=== PATIENT | male | born 1990 | race Two or more races ===

== ENCOUNTER 2024-10-03 02:21 | Emergency (ER) | payer OTHER ==
[~2024-10-03] VITALS: Ht 175.3 cm; Wt 115.2 kg
[2024-10-03 03:54] VITALS: BP 137/95; PULSE 86; RESP 19; TEMP 98.3; O2SAT 95
[2024-10-03 04:43] LABS: COVID19 ANTIGEN SOFIA FIA NEGATIVE (NEGATIVE); Rapid Influenza A Negative (Negative); Rapid Influenza B Negative (Negative)
--- NOTE | 2024-10-03 04:52 | ED.PDOC ---
GI ASSESSMENT Chief Complaint: Abdominal Pain Time Seen by MD: 02:39 Reviewed Notes: Nurses Notes, Medications, Allergies Information Source: Patient Mode of Arrival: Ambulatory X-Ray, Labs, Meds, VS Vital Signs Date Time Temp Pulse Resp B/P (MAP) Pulse Ox O2 Delivery O2 Flow Rate FiO2 10/03/24 03:54 98.3 86 19 137/95 (109) 95 98.3 10/03/24 03:54 86 19 95 Room Air 10/03/24 03:10 98.3 88 18 150/103 (119) 95 Lab Test 10/03/24 03:15 Range/Units Influenza Type A Antigen Negative Negative Influenza Type B Antigen Negative Negative SARS-CoV-2 Antigen (Rapid) Negative NEGATIVE Time of 1ST Reevaluation: 04:51 Reevaluation 1ST: Improved Patient Education/Counseling: Diagnosis, Treatment, Prognosis, Need For Follow Up Family Education/Counseling: Prognosis, Need For Follow Up Departure 1 Departure Time of Disposition: 04:51 Impression: Primary Impression: Gastroenteritis Disposition: 01 HOME / SELF CARE / HOMELESS Condition: Stable Discharged With: Spouse Critical Care Note Critical Care Time?: No Stability Stability form required: JUJU Quinones Oct 03, 2024 04:52
== END 2024-10-03 05:14 | disposition home or self-care (01) ==
LOC: ER 02:21
DX: K52.9 Noninfective gastroenteritis and colitis, unspecified (principal); Z20.822 Contact with and (suspected) exposure to COVID-19
CPT/HCPCS: 36415; 87426; 87804

== ENCOUNTER 2025-06-17 23:41 | Emergency (ER) | payer MEDICAID, OTHER ==
[~2025-06-17] VITALS: Ht 175.3 cm; Wt 103.0 kg
[2025-06-17 23:41] VITALS: O2SAT 94
--- NOTE | 2025-06-18 00:05 | ED.PDOC ---
Eye-HPI HPI Comments PATIENT C/O RIGHT UPPER TOOTH PAIN FOR 4 DAYS/ CAVITY FOR MONTHS. HAS ATTEMPTED TO MAKE DENTIST APPOINTMENT, BUT THEY ARE MONTHS OUT. DIFFICULTY BREATHING, SWALLOWING, SHORTNESS OF BREATH, THROAT SWELLING, FEVER, CHILLS, NAUSEA OR VOMITING. Chief Complaint: Tooth Pain Time Seen by MD: 23:48 Reviewed Notes: Nurses Notes, Medications, Allergies Allergies: Coded Allergies: NO KNOWN ALLERGIES (Unverified , 06/17/25) Home Meds Active Scripts Ibuprofen (Ibuprofen) 800 Mg Tab, 800 MG PO Q8HP PRN for 6 Days, #18 TAB Prov:JUJU CASTILLO [facility] 06/18/25 Clindamycin Hcl (Clindamycin Hcl) 300 Mg Cap, 300 MG PO QID for 7 Days, #28 CAP Prov:JUJU CASTILLO [facility] 06/18/25 Information Source: Patient Mode of Arrival: Ambulatory Past Medical History PAST MEDICAL HISTORY: Denies Surgical History: Denies all surgeries Family History Family History: Reviewed,noncontributory to illness Social History Smoker: Non-Smoker Alcohol: Denies ETOH Use Drugs: Denies Drug Use All Other Systems: Reviewed and Negative (SEE HPI) Physical Exam General Appearance: No Apparent Distress, Normal HEENT: Pharynx Normal, TMs Normal, Other (RIGHT BACK UPPER MOLAR MODERATE DECAY MILD RIGHT SIDE CHEEK SWELLING) Neck: Full Range of Motion, Non-Tender, Normal, Normal Inspection Respiratory: Chest Non-Tender, Lungs Clear, No Accessory Muscle Use, No Respiratory Distress, Normal Breath Sounds Cardiovascular: No Edema, No JVD, No Murmur, No Gallop, Normal Peripheral Pulses, Regular Rate/Rhythm Breast Exam: Deferred Gastrointestinal: No Organomegaly, Non Tender, No Pulsatile Mass, Normal Bowel Sounds, Soft Genitalia: Deferred Pelvic: Deferred Rectal: Deferred Extremities: No calf tenderness, Normal capillary refill, Normal inspection, Normal range of motion, Non-tender, No pedal edema Musculoskeletal : Apperance: Normal Neurologic: Alert, dolly pusher II-XII nml as Tested, No Motor Deficits, Normal Affect, Normal Mood, No Sensory Deficits Cerebellar Function: Normal Reflexes: Normal Skin: Dry, Normal Color, Warm Lymphatic: No Adenopathy Was a procedure done? Was a procedure done?: No EENT DIFF Eye: N/A Ear: Otitis Media, Dental, Pharyngitis X-Ray, Labs, Meds, VS Vital Signs Date Time Temp Pulse Resp B/P (MAP) Pulse Ox O2 Delivery O2 Flow Rate FiO2 06/17/25 23:41 97.3 67 20 168/106 94 97.3 X-Ray, Labs, Meds, VS Comment TORADOL 60 MG IM, NORCO 5 MG P.O., AND ROCEPHIN 1 G IM, AND HURRICAINE SPRAY. REPORTS IMPROVEMENT IN PAIN REQUESTING DISCHARGE AT THIS TIME. SCRIPT TRIAL OF CLINDA AND IBUPROFEN ADVISED TAKE MEDICATION PRESCRIBED SIDE EFFECTS DISCUSSED ADVISED TO TAKE WITH A PROBIOTIC FOR YOGURT DAILY. WITH DENTAL FOR RESOLUTION. ER RETURN PRECAUTIONS GIVEN PLEASE WITH DISCHARGE PLAN OF CARE. Time of 1ST Reevaluation: 23:48 Reevaluation 1ST: Unchanged Time of 2ND Reevaluation: 00:18 Reevaluation 2ND: Improved Patient Education/Counseling: Diagnosis, Treatment, Need For Follow Up Family Education/Counseling: Diagnosis, Treatment, Need For Follow Up SEPSIS Sepsis Screen Date sepsis recognized/suspect: Jun 17, 2025 Time Sepsis recognized/suspect: 2340 Recent Procedure: No On Antibiotic Therapy: No Respiratory Rate >20: No Heart Rate >90: No Temp<36 C (96.8 F) or >38.3 C: No SBP <90 or MAP <65 mmHG: No New Acute Mental Status Change: No Is the patient on CPAP, BIPAP,: No Vital Signs Date Time Temp Pulse Resp B/P (MAP) Pulse Ox O2 Delivery O2 Flow Rate FiO2 06/17/25 23:41 97.3 67 20 168/106 94 97.3 Departure 1 Departure Time of Disposition: 00:18 Impression: Primary Impression: Infected dental caries Additional Impression: Abscess, dental Disposition: HOME / SELF CARE / HOMELESS Condition: Stable e-Prescriptions Ibuprofen (Ibuprofen) 800 Mg Tab 800 MG PO Q8HP PRN for 6 Days, #18 TAB Prov: JUJU CASTILLO 06/18/25 Clindamycin Hcl (Clindamycin Hcl) 300 Mg Cap 300 MG PO QID for 7 Days, #28 CAP Prov: JUJU CASTILLO 06/18/25 Discharged With: Significant Other Critical Care Note Critical Care Time?: No Stability Stability form required: No JUJU CASTILLO Jun 18, 2025 00:05
[2025-06-18] MEDS ORDERED: CLIN1CAP70 PO (00:13)
[2025-06-18] MEDS ORDERED: IBUP-1456 PO (00:13)
[2025-06-18 00:17] VITALS: BP 149/102; PULSE 60; RESP 18; TEMP 99
[2025-06-18] MEDS: cefTRIAXone SOD 1,000 MG VL IM ONE (00:23)
[2025-06-18] MEDS: KETOROLAC TROMETH 60MG/2ML VIAL IM ONE (00:29)
[2025-06-18] MEDS: HYDROcodone-ACET 5/325MG TAB PO ONE (00:33)
[2025-06-18] MEDS: BENZOCAINE (DENTAL) 20 % SPRAY 60ML MT ONE (00:33)
== END 2025-06-18 00:36 | disposition home or self-care (01) ==
LOC: ER 23:41
DX: K02.9 Dental caries, unspecified (principal); K04.7 Periapical abscess without sinus; Z79.899 Other long term (current) drug therapy
CPT/HCPCS: 96372; 99284; J0696; J1885

== ENCOUNTER 2025-08-11 00:18 | Emergency (ER) | payer MEDICAID ==
[~2025-08-11] VITALS: Ht 175.3 cm; Wt 119.1 kg
[2025-08-11 00:20] VITALS: PULSE 65; RESP 18; TEMP 98.1; O2SAT 96
[2025-08-11] MEDS: ONDANSETRON ODT 4 MG TAB PO ONE (00:43)
[2025-08-11] MEDS: HYDROcodone-ACET 5/325MG TAB PO ONE (00:43)
[2025-08-11] MEDS ORDERED: CYCL-837 PO (00:47)
[2025-08-11] MEDS ORDERED: ACET500T58 PO (00:47)
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
[2025-08-11 01:05] VITALS: BP 184/127
--- NOTE | 2025-08-11 02:30 | DVH ---
EXAM: CT CERVICAL WITHOUT CONTRAST HISTORY: neck pain COMPARISON: None CTDIvol 26.5 mGy, DLP 727.29 mGy*cm. TECHNIQUE: Multiple axial CT images of the spine were obtained using bone algorithm. Axial and coronal reformatting was done. Bone and soft tissue windows were reviewed. FINDINGS: No evidence of vertebral fracture or compression deformity. Normal alignment. Normal craniocervical junction. Minimal multilevel spondylosis. No acute finding of the imaged intracranial contents, neck soft tissues, or upper chest. IMPRESSION: 1. No acute finding of the cervical spine.
== END 2025-08-11 02:37 | disposition home or self-care (01) ==
LOC: ER 00:18
DX: S16.1XXA Strain of muscle, fascia and tendon at neck level, initial encounter (principal); I10 Essential (primary) hypertension; E11.9 Type 2 diabetes mellitus without complications; V89.2XXA Person injured in unspecified motor-vehicle accident, traffic, initial encounter; Y92.410 Unspecified street and highway as the place of occurrence of the external cause; Y93.89 Activity, other specified; Y99.8 Other external cause status
CPT/HCPCS: 72125; 99284; Q0162

== ENCOUNTER 2025-08-14 23:10 | Emergency (ER) | payer MEDICAID ==
[~2025-08-14] VITALS: Ht 175.3 cm; Wt 117.0 kg
[~2025-08-14 23:10] MED LIST: ACET500T58 PO; CYCL-837 PO
--- NOTE | 2025-08-14 23:24 | ECG ---
[facility] Test Date: 2025-08-14 Test Time: 23:22:07 Pat Name: CHRISTIAN HOLLY Department: [facility] ED Patient ID: [id number] Room: Gender: M Cosmetic Sales Consultant: Devyn : 1990 Requested By: DOREEN FAM Order Number: [id number] Reading MD: Rickey Degroot Measurements Intervals [place] Rate: 60 P: 53 AL: 146 QRS: 47 QRSD: 99 T: -2 QT: 443 QTc: 443 Interpretive Statements Sinus rhythm Nonspecific repol abnormality, inferior leads Electronically Signed On 08-15-2025 14:46:10 PST by Rickey Degroot Please click the below link to view image of tracing.
[2025-08-15] MEDS ORDERED: NITROGLYCERIN 0.4 MG SL TAB SL ONE (02:45)
[2025-08-15] MEDS ORDERED: AML5T PO (02:57)
--- NOTE | 2025-08-15 02:58 | ED.PDOC ---
HPI Comments HPI: Poor Historian. 34-year-old male presents to emergency depart for evaluation of elevated blood pressure at home today. Patient does not take any blood pressure medications at home and has no past medical history. Patient was here few days ago for the same thing. He states that today his blood pressure was greater than 180 systolically. Patient has some mild associated left-sided chest discomfort. All symptoms have resolved prior to my evaluation here in the ED today. He feels he is back to his normal self. Past Medical History: Denies any Past Surgical History: Denies any Remote tobacco abuse. Denies any use of drugs. REVIEW OF SYSTEMS: CONSTITUTIONAL: Denies acute: fever, diaphoresis, chills, generalized weakness. HEAD: Denies acute: headache, photophobia Eyes: Denies acute: Double vision, vision loss, eye pain, eye discharge. EARS: Denies acute: tinnitus, hearing loss, ear discharge, ear pain, THROAT: Denies acute: sore throat, swelling, difficulty swallowing , pain with swallowing, change in voice. NECK: Denies acute: neck pain, neck swelling, stiff neck. HEART: Denies acute : , palpitations, LUNGS: Denies acute: SOB, wheezing, cough, hemoptysis ABDOMEN: Denies acute: abdominal pain, Nausea, Vomiting, diarrhea, melena , hematemesis, hematochezia SKIN: Denies acute: rash, redness, lesions, itchiness. EXTREMITIES: Denies acute: calf pain, numbness, tingling, weakness, denies pain in extremity. Denies acute: Low back pain. Neuro: Denies acute: focal neurological deficit, motor or sensory focal neurological deficit, tremors, seizure like activity, confusion, dizziness, change in mental status, loss of bowel or bladder function, cauda equina like symptoms. : Denies acute: dysuria, hematuria, flank pain, increase in urinary frequency. PSYCH: Denies acute: hallucination, suicidal ideation, homicidal ideation. PHYSICAL EXAM: General: -----no---acute distress, awake and alert. Head: normocephalic, atraumatic. No raccoon's eyes, no mccall sign. Neck: supple, trachea is midline, no swelling. Throat: Normal phonation. Eyes:, no erythema, no purulent discharge, no proptosis, no icterus. Heart: regular rate, regular rhythm, no significant murmur appreciated. Lungs: no apparent respiratory distress, Able to speak in full sentences. No wheezing, no rhonchi, no crackles. No stridors Clear to auscultation bilaterally. Abdomen: non tender to palpation, non distended, soft, no guarding, no rebound, + bowel sounds. Neuro: Awake, Alert, oriented to name, self, situation, follows commands GCS=15. Speech is normal. Skin: no petechia, no purpura, no cyanosis, non-pale, not jaundice. Lower extremities: --no - Pitting edema no deformity, no focal swelling, no calf TTP. Makes eye contact. moves all four extremities. Face: no apparent facial droop. Ambulating in the ED independently. ED COURSE: DISCLAIMER: This medical document was created using an electronic medical record system with voice recognition software and computerized dictation system. Although this document has been carefully reviewed, there might still be some phonetic and typographical errors. Occasional wrong-word or "sound-alike" substitutions may have occurred due to the inherent limitations of voice recognition software. These areas are purely typographical due to imperfections of the software programs and do not reflect any compromise in the patient's medical care. Please read the chart carefully and recognize, using context, where these substitutions have occurred. Chief Complaint: High Blood Pressure Time Seen by MD: 02:35 Primary Care Provider: UNKNOWN Reviewed Notes: Medications, Allergies Allergies: Coded Allergies: NO KNOWN ALLERGIES (Unverified , 06/17/25) Home Meds Active Scripts Amlodipine Besylate (NORVASC TABLET) 5 Mg Tb, 1 TAB PO DAILY for 20 Days, #20 TAB 20 Refills Prov:DOREEN FAM DO 08/15/25 Cyclobenzaprine Hcl (Cyclobenzaprine Hcl) 5 Mg Tab, 1 TAB PO QPM, #14 TAB 0 Refills Prov:DOMINIC GALLEGO 08/11/25 Acetaminophen (Acetaminophen) 500 Mg Tab, 500 MG PO Q4HPRN, #30 TAB 0 Refills Prov:DOMINIC GALLEGO 08/11/25 Information Source: Patient Mode of Arrival: Ambulatory Past Medical History PAST MEDICAL HISTORY: HTN Surgical History: Denies all surgeries Family History Family History: Unknown Social History Smoker: Non-Smoker Alcohol: Denies ETOH Use Drugs: Denies Drug Use Lives In: Home Was a procedure done? Was a procedure done?: No CP Differential Dx Differential Diagnosis: N/A Differential Diagnosis: Other (DDX include renal disease, thyroid disease, electrolyte abnormality, increased salt intake, medications non-compliance, undiagnosed HTN, Hypertensive crisis, hypertensive urgency., drug toxicity.) Differential Diagnosis: Other (Ddx include but not limitied to gastritis, musculoskeletal pain, radiculopathy, atypical chest pain, dissection, aneurysm, ACS, unstable angina, hiatal hernia, GERD, anxiety, costochondritis, PE, pneumothroax, neoplasm, cardiac ischemia, drug abuse, anemia.) X-Ray, Labs, Meds, VS Vital Signs Date Time Temp Pulse Resp B/P (MAP) Pulse Ox O2 Delivery O2 Flow Rate FiO2 08/15/25 03:07 98.2 64 14 164/100 (121) 97 98.2 08/14/25 23:22 60 08/14/25 23:12 97.9 57 18 180/116 96 97.9 Lab Test 08/15/25 02:57 08/14/25 23:25 Range/Units Troponin I High Sensitivity 113 *H 112 *H </=54 ng/L White Blood Count 7.5 4.4-10.8 10^3/uL Red Blood Count 5.24 4.5-5.90 10^6/uL Hemoglobin 16.2 13.5-17.5 g/dL Hematocrit 47.0 41.0-53.0 % Mean Corpuscular Volume 89.6 80.0-100.0 fL Mean Corpuscular Hemoglobin 30.9 28.0-32.0 pg Mean Corpuscular Hemoglobin Concent 34.4 32.0-36.0 g/dL Red Cell Distribution Width 12.8 11.8-14.3 % Platelet Count 213 140-450 10^3/uL Mean Platelet Volume 10.8 6.9-10.8 fL Neutrophils (%) (Auto) 43.7 37.0-80.0 % Lymphocytes (%) (Auto) 45.3 10.0-50.0 % Monocytes (%) (Auto) 7.7 0.0-12.0 % Eosinophils (%) (Auto) 2.9 0.0-7.0 % Basophils (%) (Auto) 0.4 0.0-2.0 % Neutrophils # (Auto) 3.3 1.6-8.6 10 ^3/uL Lymphocytes # (Auto) 3.4 0.4-5.4 10 ^3/uL Monocytes # (Auto) 0.6 0-1.3 10 ^3/uL Eosinophils # (Auto) 0.2 0-0.8 10 ^3/uL Basophils # (Auto) 0 0-0.2 10 ^3/uL Nucleated Red Blood Cells 0.1 % Sodium Level 142 136-145 mmol/L Potassium Level 3.6 3.5-5.1 mmol/L Chloride Level 104 98-107 mmol/L Carbon Dioxide Level 29 20-31 mmol/L Anion Gap 9 5-15 Blood Urea Nitrogen 15 9-23 mg/dL Creatinine 1.18 0.700-1.30 mg/dL Glomerular Filtration Rate Calc 82 >90 mL/min BUN/Creatinine Ratio 12.7 10.0-20.0 Serum Glucose 91 74-106 mg/dL Calcium Level 9.1 8.7-10.4 mg/dL Total Bilirubin 1.9 H 0.2-1.0 mg/dL Aspartate Amino Transferase (AST) 44 H 13-40 U/L Alanine Aminotransferase (ALT) 69 H 7-40 U/L Alkaline Phosphatase 107 46-116 U/L Total Protein 7.6 5.7-8.2 g/dL Albumin 4.4 3.2-4.8 g/dL Time of 1ST Reevaluation: 00:00 Reevaluation 1ST: Improved Patient Education/Counseling: Other Family Education/Counseling: Other Comments MDM: patient presented with the above HPI.---hypertension and chest pain---workup was initiated. patient was found with the above mentioned diagnosis. the following medications were ordered: please refer to order lists of meds and tests obtained by myself Dr. Fam. Patient ED course and VS have been stabilized. Patient has been reassessed in the ED and remained in a stable condition. Patient has been observed in the ED adequate length of time to insure improvement/stability. Escalation of care considered: Consideration of escalation to observation or admission Patient was ADMITTED to the medicine team for further evaluation and treatment of their presentation. However I was notified that the patient eloped All the reports of any imaging studies that were ordered by myself were reviewed by myself. SEPSIS Sepsis Screen Date sepsis recognized/suspect: Aug 14, 2025 Time Sepsis recognized/suspect: 2314 Recent Procedure: No On Antibiotic Therapy: No Respiratory Rate >20: No Heart Rate >90: No Temp<36 C (96.8 F) or >38.3 C: No SBP <90 or MAP <65 mmHG: No New Acute Mental Status Change: No Is the patient on CPAP, BIPAP,: No Physician Orders Electrocardigram (08/14/25 23:17) Banquet Stewardess (08/15/25 ) Drug Screen (08/15/25 02:35) Chest Portable (08/15/25 02:35) Electrocardigram (08/15/25 02:35) Vital Signs Date Time Temp Pulse Resp B/P (MAP) Pulse Ox O2 Delivery O2 Flow Rate FiO2 08/15/25 03:07 98.2 64 14 164/100 (121) 97 98.2 08/14/25 23:22 60 08/14/25 23:12 97.9 57 18 180/116 96 97.9 Laboratory Tests Test 08/14/25 23:25 White Blood Count 7.5 10^3/uL (4.4-10.8) Departure 1 Departure Time of Disposition: 02:56 Impression: Primary Impression: Hypertension Additional Impressions: Chest pain Elevated troponin Eloped from emergency department Disposition: 07 LEFT AWOL/ELOPED Condition: Stable Additional Instructions: e-Prescriptions Amlodipine Besylate (NORVASC TABLET) 5 Mg Tb 1 TAB PO DAILY for 20 Days, #20 TAB 20 Refills Prov: DOREEN FAM DO 08/15/25 Discharged With: Self Critical Care Note Critical Care Time?: No Heart Score Heart Score: Heart Score Response (Comments) Value History Slightly Suspicious 0 EKG Normal 0 Age <45 0 Risk Factors 1 or 2 risk factors 1 Troponin 1-2 x's Normal limit 1 Total 2 DOREEN FAM DO Aug 15, 2025 02:58
[2025-08-15 03:07] VITALS: BP 164/100; PULSE 64; RESP 14; TEMP 98.2; O2SAT 97
[2025-08-15 03:13] LABS: Hematocrit 47.0 % (41.0-53.0); Hemoglobin 16.2 g/dL (13.5-17.5); Mean Corpuscular Hemoglobin 30.9 pg (28.0-32.0); Mean Corpuscular Volume 89.6 fL (80.0-100.0); Nucleated Red Blood Cells % 0.1 %
[2025-08-15 03:18] LABS: Albumin 4.4 g/dL (3.2-4.8); Alkaline Phosphatase 107 U/L (46-116); Anion Gap 9 (5-15); BUN/Creatinine Ratio 12.7 (10.0-20.0); Blood Urea Nitrogen 15 mg/dL (9-23); Calcium 9.1 mg/dL (8.7-10.4); Carbon Dioxide 29 mmol/L (20-31); Chloride 104 mmol/L (98-107); Glucose 91 mg/dL (74-106); Potassium 3.6 mmol/L (3.5-5.1); Sodium 142 mmol/L (136-145); Total Protein 7.6 g/dL (5.7-8.2)
[2025-08-15 03:20] LABS: Alanine Aminotransferase 69 U/L (7-40); Bilirubin, Total 1.9 mg/dL (0.2-1.0)
--- NOTE | 2025-08-15 03:36 | DVH ---
CHEST RADIOGRAPH Indication: cp, htn Technique: Single frontal view of the chest was obtained Comparison: None IMPRESSION: Heart appears normal in size. The lungs appear clear without focal airspace opacity, effusion, or pneumothorax
== END 2025-08-15 04:43 | disposition left against medical advice (07) ==
LOC: ER 23:10
DX: I10 Essential (primary) hypertension (principal); R07.89 Other chest pain; R79.89 Other specified abnormal findings of blood chemistry; Z79.899 Other long term (current) drug therapy
CPT/HCPCS: 36415; 71045; 80053; 84484; 85025; 93005